=== PATIENT | female | born 1975 | race Caucasian/White ===

== ENCOUNTER → 2016-07-27 | Outpatient (REF) | payer OTHER ==
[~2016-07-27] MED LIST: /CELE20CA PO; /ESCI20TA PO; /ESOM40CA PO; /ZOLP6ER PO; ALBU17IN INH; AMBI10TA PO; AMBIEN PO; ASCO25TA PO; CEPH500C PO; CETI10TA PO; CIPR500T89 PO; CLON-383 PO; CLON0.5T PO; COLA100C2 PO; DOCU10CA PO; FERR325T3 PO; FERROUS SULFATE PO; FLAG500T PO; HYDR-3713 PO; HYDR-733 PO; HYDR200T3 PO; LYRI150C PO; MAXA10TA14 PO; MAXA10TA17 PO; MOTR200T44 PO; MULT1TAB8 PO; NEXI40CA PO; OMEP40CA2 PO; PERC5TAB6 PO; PLAQUINIL; PREG100CA PO; PROP60CA PO; PROP60TA14 PO; RANI15TA PO; SUCR1TA PO; TOPR50TA PO; TRAM50TA2 PO; VARE1TA PO; VENL100T PO; VENL150C43 PO; VITA100072 PO; VITA100L SQ; VITA1DRO SL; VITA500C PO; ZOFR20TA PO; ZYRT10TA6 PO; drisdol PO; hydrocodone PO; hydroxychloroquine PO; savella PO; vit b12 SQ
[2016-07-27 16:07] LABS: BASO % 0.4 % (0.0-1.0); EOS # 0.1 K/mm3 (0.0-0.50); EOS % 0.9 % (0.0-3.0); LARGE UNSTAINED CELL # 0.1 K/mm3 (0.0-0.4); LARGE UNSTAINED CELL % 1.7 % (0.0-4.0); MEAN CORPUSCULAR HEMOGLOBIN 32.1 pg (27.0-33.0); MEAN CORPUSCULAR HGB CONC 32.3 g/dl (32.0-36.5); MEAN CORPUSCULAR VOLUME 99.1 fl (80.0-96.0); MONO # 0.4 K/mm3 (0.0-0.8); MONO % 5.8 % (0.0-5.0); NEUTROPHILS # 4.3 K/mm3 (1.8-7.7); NEUTROPHILS % 63.2 % (36.0-66.0); PLATELET COUNT, AUTOMATED 351 k/mm3 (150-450); RED CELL DISTRIBUTION WIDTH 14.4 % (11.5-14.5); WHITE BLOOD COUNT 6.8 K/mm3 (4.0-10.0)
[2016-07-27 16:36] LABS: ALBUMIN 3.2 GM/DL (3.2-5.2); ALBUMIN/GLOBULIN RATIO 0.94 (1.00-1.93); ALKALINE PHOSPHATASE 69 U/L (45-117); ALT/SGPT 24 U/L (12-78); ANION GAP 6 MEQ/L (8-16); AST/SGOT 15 U/L (15-37); BILIRUBIN,TOTAL 0.2 MG/DL (0.2-1.0); BLOOD UREA NITROGEN 11 MG/DL (7-18); CALCIUM LEVEL 8.4 MG/DL (8.5-10.1); CARBON DIOXIDE LEVEL 25 MEQ/L (21-32); CHLORIDE LEVEL 109 MEQ/L (98-107); GLOMERULAR FILTRATION RATE > 60.0 (>58); GLUCOSE, FASTING 80 MG/DL (70-105); POTASSIUM SERUM 4.5 MEQ/L (3.5-5.1); SODIUM LEVEL 140 MEQ/L (136-145); TOTAL PROTEIN 6.6 GM/DL (6.4-8.2)
[2016-07-27 18:13] LABS: ERYTHROCYTE SEDIMENTATION RATE 23 mm/hr (0-20)
[2016-07-31 00:19] LABS: Lyme Disease IgG/IgM Antibodie <0.91 ISR (0.00-0.90); Lyme Disease IgM Ab Quantitati <0.80 index (0.00-0.79)
== END ==
LOC: M LABDRAW1 15:43
PROVIDERS: ATTEND Internal Medicine Rheumatology
DX: M16.0 Bilateral primary osteoarthritis of hip (principal); M17.0 Bilateral primary osteoarthritis of knee; M05.79 Rheumatoid arthritis with rheumatoid factor of multiple sites without organ or systems involvement; G56.01 Carpal tunnel syndrome, right upper limb; Z79.899 Other long term (current) drug therapy; R53.83 Other fatigue; M70.61 Trochanteric bursitis, right hip

== ENCOUNTER 2017-05-27 12:31 | Emergency (ER) | payer MEDICAID, OTHER ==
[2017-05-27] MEDS: IPRATROPIUM 0.5MG/ALBUTEROL 2.5MG INH SOL UD 3ML (DUONEB)(J7620) NEB (13:25)
[2017-05-27] MEDS: ALBUTEROL SULFATE 2.5 MG/0.5 ML INH NEB SOLN INH (13:25)
[2017-05-27] MEDS: predniSONE 20 MG TAB PO (13:57)
== END 2017-05-27 14:36 | disposition home or self-care (01) ==
LOC: M ED 12:31
DX: J20.9 Acute bronchitis, unspecified (principal); J45.909 Unspecified asthma, uncomplicated; Z79.899 Other long term (current) drug therapy; Z88.0 Allergy status to penicillin; Z88.8 Allergy status to other drugs, medicaments and biological substances; F17.210 Nicotine dependence, cigarettes, uncomplicated
CPT/HCPCS: 71046

== ENCOUNTER → 2017-07-15 | Outpatient (CLI) | payer OTHER | LOC: M WHC 13:51 | DX: Z12.31 Encounter for screening mammogram for malignant neoplasm of breast (principal); Z80.3 Family history of malignant neoplasm of breast; Z80.41 Family history of malignant neoplasm of ovary | CPT/HCPCS: 77067 ==

== ENCOUNTER → 2017-08-04 | Outpatient (CLI) | payer OTHER | LOC: M CARPUL 08:15 | DX: R06.2 Wheezing (principal) | CPT/HCPCS: 94060 ==

== ENCOUNTER → 2017-08-23 | Outpatient (CLI) | payer OTHER ==
[2017-08-23 12:33] LABS: ANION GAP 6 MEQ/L (8-16); BLOOD UREA NITROGEN 8 MG/DL (7-18); CALCIUM LEVEL 8.5 MG/DL (8.5-10.1); CARBON DIOXIDE LEVEL 27 MEQ/L (21-32); CHLORIDE LEVEL 107 MEQ/L (98-107); CREATININE FOR GFR 0.84 MG/DL (0.55-1.30); GLOMERULAR FILTRATION RATE > 60.0 (>58); GLUCOSE, FASTING 91 MG/DL (70-100); POTASSIUM SERUM 4.5 MEQ/L (3.5-5.1); SODIUM LEVEL 140 MEQ/L (136-145)
[2017-08-23 12:34] LABS: BASO # 0.1 10^3/uL (0.0-0.2); BASO % 0.7 % (0.0-1.0); EOS # 0.1 10^3/uL (0.0-0.50); EOS % 1.2 % (0.0-3.0); HEMATOCRIT 41.7 % (36.0-47.0); HEMOGLOBIN 13.9 g/dl (12.0-15.5); IMMATURE GRANULOCYTE % 0.3 % (0-3.0); LYMPH % 29.4 % (24.0-44.0); MEAN CORPUSCULAR HEMOGLOBIN 32.9 pg (27.0-33.0); MEAN CORPUSCULAR HGB CONC 33.3 g/dl (32.0-36.5); MEAN CORPUSCULAR VOLUME 98.6 fl (80.0-96.0); MONO # 0.7 10^3/uL (0.0-0.8); MONO % 9.8 % (0.0-5.0); NEUTROPHILS % 58.6 % (36.0-66.0); PLATELET COUNT, AUTOMATED 358 10^3/uL (150-450); RED BLOOD COUNT 4.23 10^6/uL (4.00-5.40); RED CELL DISTRIBUTION WIDTH 15.5 % (11.5-14.5); WHITE BLOOD COUNT 6.9 10^3/uL (4.0-10.0)
[2017-08-23 12:47] LABS: APPEARANCE, URINE CLEAR (CLEAR); BACTERIA, URINE AUTO NEGATIVE (NEGATIVE); BILIRUBIN, URINE AUTO 1+ (NEGATIVE); BLOOD, URINE BLOOD NEGATIVE (NEGATIVE); COLOR, URINE AMBER (YELLOW); GLUCOSE, URINE (UA) AUTO NEGATIVE (NEGATIVE); KETONE, URINE AUTO TRACE mg/dL (NEGATIVE); LEUKOCYTE ESTERASE, URINE AUTO NEGATIVE (NEGATIVE); MUCUS, URINE SMALL (NEGATIVE); NITRITE, URINE AUTO NEGATIVE (NEGATIVE); PROTEIN, URINE AUTO NEGATIVE (NEGATIVE); RBC, URINE AUTO 0 /HPF (0-3); SPECIFIC GRAVITY URINE AUTO 1.021 (1.002-1.035); SQUAMOUS EPITHELIAL CELL UR AU 1 /HPF (0-6); WBC, URINE AUTO 3 /HPF (0-3)
== END ==
LOC: M WUC 08:22
DX: I10 Essential (primary) hypertension (principal); M05.79 Rheumatoid arthritis with rheumatoid factor of multiple sites without organ or systems involvement
CPT/HCPCS: 80048

== ENCOUNTER → 2017-12-27 | Outpatient (REF) | payer OTHER ==
[2017-12-27 11:44] LABS: APPEARANCE, URINE CLEAR (CLEAR); BACTERIA, URINE AUTO NEGATIVE (NEGATIVE); BILIRUBIN, URINE AUTO NEGATIVE (NEGATIVE); BLOOD, URINE BLOOD NEGATIVE (NEGATIVE); COLOR, URINE YELLOW (YELLOW); GLUCOSE, URINE (UA) AUTO NEGATIVE (NEGATIVE); KETONE, URINE AUTO NEGATIVE (NEGATIVE); LEUKOCYTE ESTERASE, URINE AUTO NEGATIVE (NEGATIVE); MUCUS, URINE SMALL (NEGATIVE); NITRITE, URINE AUTO NEGATIVE (NEGATIVE); PROTEIN, URINE AUTO NEGATIVE (NEGATIVE); RBC, URINE AUTO 0 /HPF (0-3); SPECIFIC GRAVITY URINE AUTO 1.012 (1.002-1.035); SQUAMOUS EPITHELIAL CELL UR AU 1 /HPF (0-6); UROBILINOGEN, URINE AUTO 0.2 mg/dL (0.0-2.0); WBC, URINE AUTO 0 /HPF (0-3)
[2017-12-27 12:05] LABS: ESTIMATED AVERAGE GLUCOSE 100 MG/DL (60-110); HEMOGLOBIN A1c 5.1 %
[2017-12-27 12:28] LABS: ALBUMIN 3.2 GM/DL (3.2-5.2); ALBUMIN/GLOBULIN RATIO 0.97 (1.00-1.93); ALKALINE PHOSPHATASE 126 U/L (45-117); ALT/SGPT 26 U/L (12-78); AST/SGOT 38 U/L (7-37); BILIRUBIN,DIRECT 0.2 MG/DL (0.0-0.2); BILIRUBIN,TOTAL 0.7 MG/DL (0.2-1.0); IRON (FE) 148 UG/DL (50-170); TOTAL 25(OH) VITAMIN D 16.1 NG/ML (30.0-100.0); TOTAL PROTEIN 6.5 GM/DL (6.4-8.2)
== END ==
LOC: M SFHCPLAZ 08:51
DX: M05.79 Rheumatoid arthritis with rheumatoid factor of multiple sites without organ or systems involvement (principal); R82.4 Acetonuria; Z98.84 Bariatric surgery status
CPT/HCPCS: 83540

== ENCOUNTER → 2018-07-10 | Outpatient (CLI) | payer OTHER ==
[~2018-07-10] MED LIST changes: -/CELE20CA PO; -/ESCI20TA PO; -/ESOM40CA PO; -ASCO25TA PO; +BENZ200C70 PO; +CELE1CAP4 PO; +CIPR-249 PO; -CIPR500T89 PO; -CLON0.5T PO; +CLON0.5T8 PO; +IPRA0.00 IN; +LEXA1TAB2 PO; +MUCI600T37 PO; +NEXI1CAP3 PO; +PERC5TAB12 PO; -PERC5TAB6 PO; +PRED20TA PO; +VITA100018 PO; -VITA100072 PO; +VITA1TAB23 PO; -ZOFR20TA PO; +ZOFR4TAB16 PO
--- NOTE | 2018-07-11 02:06 | REP ---
Clinical: Neck pain. Dorsal Technique: AP, lateral, flexion/extension, bilateral oblique, open-mouth and swimmer's views of the cervical spine. Findings: Lateral view demonstrates mild straightening of normal lordosis. Subtle endplate sclerosis and disc space narrowing at C5-6 and C6-7 suggested. Remainder examination is age-appropriate. Impression: Very mild degenerative changes at C5-6 and C6-7 cannot be excluded. Electronically Signed by Francisco Arroyo MD 07/11/2018 01:59 A
--- NOTE | 2018-07-11 02:17 | REP ---
Clinical: thoracic pain. Technique: AP, lateral views of the thoracic spine. Findings: Alignment and kyphosis is maintained. Vertebral bodies intact. No acute fracture / compression injury or subluxation. Very minimal generalized age-related changes noted. No obvious significant disc space narrowing or osteophytosis. Impression: Generalized age-related changes. Electronically Signed by Francisco Arroyo MD 07/11/2018 02:08 A
--- NOTE | 2018-07-11 02:44 | REP ---
Clinical: Dorsalgia. Back pain . Technique: AP, lateral, flexion/extension, bilateral oblique, and coned-down views. Findings: Alignment and lordosis is maintained. The vertebral bodies including transverse process and spinous processes are intact and there is no evidence for acute fracture / compression injury or subluxation. No evidence for spondylolysis or spondylolisthesis. Lateral view best demonstrates moderate degenerative change at L4-5 and L5-S1 including endplate sclerosis, disc space narrowing, and marginal spurring. Impression: Moderate degenerative spondylosis at L4-5 and L5-S1. Electronically Signed by Francisco Arroyo MD 07/11/2018 02:36 A
== END ==
LOC: M LAB 10:41
PROVIDERS: ATTEND Student in an Organized Health Care Education/Training Program
DX: M50.322 Other cervical disc degeneration at C5-C6 level (principal); M50.323 Other cervical disc degeneration at C6-C7 level; M47.816 Spondylosis without myelopathy or radiculopathy, lumbar region; M47.817 Spondylosis without myelopathy or radiculopathy, lumbosacral region; M54.9 Dorsalgia, unspecified; Z80.41 Family history of malignant neoplasm of ovary

== ENCOUNTER → 2018-07-13 | Outpatient (CLI) | payer OTHER ==
--- NOTE | 2018-07-14 13:17 | REP ---
ENDOVAGINAL PROBE PELVIC ULTRASOUND: 07/13/2018. Clinical history: Family history of ovarian cancer. Prior hysterectomy 05/13. Findings: Bladder only partially filled 7.3 x 2.5 x 2.9 cm. Vaginal cuff intact. Uterus absent. No mass at the cuff. No fluid in the cul-de-sac or adnexal region on either side. The right ovary 1.2 x 0.6 x 1.3 cm. Left ovary is 3.2 x 2.9 x 3.6 cm. Both ovaries show normal color flow and Doppler tracing shows resistive index right 0.47, left 0.42. The left ovary has a 2.6 x 2.5 x 2.4 cm cyst. No adjacent fluid or solid mass. Impression: 1. Left adnexal 2.6 x 2.5 cm cyst without adjacent free fluid. No solid mass. Normal Doppler tracing both ovaries. 2. Vaginal cuff intact. Uterus absent.
== END ==
LOC: M WHC 09:52
PROVIDERS: ATTEND Student in an Organized Health Care Education/Training Program
DX: Z80.41 Family history of malignant neoplasm of ovary (principal)

== ENCOUNTER → 2018-09-13 | Outpatient (REF) | payer OTHER, MEDICAID ==
[2018-09-13 14:41] LABS: RHEUMATOID FACTOR QUANT < 10.0 IU/ML (<15.0)
[2018-09-13 14:51] LABS: VITAMIN B12 LEVEL 407 PG/ML
[2018-09-13 14:52] LABS: FOLATE 7.9 NG/ML
[2018-09-13 15:41] LABS: HEMOGLOBIN A1c 5.1 %
[2018-09-18 14:07] LABS: ANTINUCLEAR ANTIBODIES DIRECT Negative (Negative); VITAMIN B1 LEVEL WHOLE BLOOD 120.5 nmol/L (66.5-200.0); VITAMIN E(ALPHA TOCOPHEROL) 9.1 mg/L (7.0-25.1); VITAMIN E(GAMMA TOCOPHEROL) 1.7 mg/L (0.5-5.5)
== END ==
LOC: M LABNEURO 11:07
PROVIDERS: ATTEND Psychiatry & Neurology Neurology
DX: D51.9 Vitamin B12 deficiency anemia, unspecified (principal); E11.9 Type 2 diabetes mellitus without complications

== ENCOUNTER → 2018-09-13 | Outpatient (REF) | payer OTHER, MEDICAID | LOC: M LABNEURO 11:11 | PROVIDERS: ATTEND Student in an Organized Health Care Education/Training Program | DX: E55.9 Vitamin D deficiency, unspecified (principal) ==

== ENCOUNTER → 2020-02-13 | Outpatient (REF) | payer OTHER ==
[~2020-02-13] MED LIST changes: +CLON0.5T2 PO; -CLON0.5T8 PO; -OMEP40CA2 PO; +OMEP40CA97 PO; -VITA1TAB23 PO; +VITA250T20 PO
== END ==
LOC: M SFHCPLAZ 11:59
PROVIDERS: ATTEND Family Medicine
DX: E55.9 Vitamin D deficiency, unspecified (principal); I10 Essential (primary) hypertension

== ENCOUNTER → 2020-03-27 | Outpatient (REF) | payer OTHER ==
[2020-03-27 15:55] LABS: CHLAMYDIA DNA AMPLIFICATION NEGATIVE (NEGATIVE); GC DNA AMPLIFICATION NEGATIVE (NEGATIVE)
== END ==
LOC: M SFHCPLAZ 13:18
PROVIDERS: ATTEND Physician Assistant
DX: N76.4 Abscess of vulva (principal); N76.2 Acute vulvitis; Z20.2 Contact with and (suspected) exposure to infections with a predominantly sexual mode of transmission

== ENCOUNTER 2020-09-09 04:50 | Emergency (ER) | payer MEDICAID, OTHER ==
[~2020-09-09] VITALS: Ht 165.1 cm; Wt 133.0 kg
[~2020-09-09 04:50] MED LIST changes: +OMEP40CA4 PO; -OMEP40CA97 PO
[2020-09-09] MEDS ORDERED: PREG150C PO (05:07)
[2020-09-09] MEDS ORDERED: CETI-24 PO (05:07)
[2020-09-09] MEDS ORDERED: CLON0.5T2 PO (05:07)
[2020-09-09] MEDS ORDERED: LISI30TA4 PO (05:07)
[2020-09-09] MEDS ORDERED: METO1TAB7 PO (05:07)
[2020-09-09] MEDS ORDERED: ZOLP10TA2 PO (05:07)
[2020-09-09] MEDS ORDERED: FAMO20TA5 PO (05:07)
[2020-09-09] MEDS ORDERED: PRAZ1CAP PO (05:07)
[2020-09-09] MEDS ORDERED: BRIN1TAB3 PO (05:07)
[2020-09-09 05:40] LABS: BASO % 0.7 % (0.0-1.0); EOS # 0.1 10^3/uL (0.0-0.5); EOS % 1.7 % (0.0-3.0); HEMATOCRIT 32.1 % (36.0-47.0); HEMOGLOBIN 10.3 g/dl (12.0-15.5); LYMPH % 35.1 % (24.0-44.0); MEAN CORPUSCULAR HEMOGLOBIN 31.8 pg (27.0-33.0); MEAN CORPUSCULAR HGB CONC 32.1 g/dl (32.0-36.5); MEAN CORPUSCULAR VOLUME 99.1 fl (80.0-96.0); MONO # 0.5 10^3/uL (0.0-0.8); NEUTROPHILS # 3.1 10^3/uL (1.5-8.5); NEUTROPHILS % 54.2 % (36.0-66.0); PLATELET COUNT, AUTOMATED 308 10^3/uL (150-450); RED BLOOD COUNT 3.24 10^6/uL (4.00-5.40); WHITE BLOOD COUNT 5.7 10^3/uL (4.0-10.0)
[2020-09-09 05:57] LABS: CK-MB VALUE MASS 1.4 NG/ML (<3.6); CPK CREATINE PHOSPHOKINASE 142 U/L (26-192); MB/CK RELATIVE INDEX 0.99 (< OR =4); TROPONIN I < 0.02 NG/ML (< 0.10)
[2020-09-09] MEDS ORDERED: IPRATROPIUM 0.5MG/ALBUTEROL 2.5MG INH SOL UD 3ML (DUONEB) NEB ONE (06:00)
[2020-09-09 06:08] LABS: ALT/SGPT 34 U/L (12-78); BILIRUBIN,DIRECT < 0.1 MG/DL (0.0-0.2); BILIRUBIN,TOTAL 0.3 MG/DL (0.2-1.0); BLOOD UREA NITROGEN 11 MG/DL (7-18); CALCIUM LEVEL 8.4 MG/DL (8.5-10.1); CARBON DIOXIDE LEVEL 25 MEQ/L (21-32); CHLORIDE LEVEL 110 MEQ/L (98-107); CREATININE FOR GFR 1.27 MG/DL (0.55-1.30); GLUCOSE, FASTING 104 MG/DL (70-100); POTASSIUM SERUM 4.3 MEQ/L (3.5-5.1); SODIUM LEVEL 143 MEQ/L (136-145); TOTAL PROTEIN 6.2 GM/DL (6.4-8.2)
[2020-09-09 08:00] VITALS: O2SAT 96
--- NOTE | 2020-09-09 08:03 | REPVR ---
PROCEDURE INFORMATION: Exam: XR Chest Exam date and time: 09/09/2020 5:15 AM Age: 45 years old Clinical indication: Cough; Additional info: Dyspnea/cough TECHNIQUE: Imaging protocol: XR of the chest. Views: 1 view. COMPARISON: CR Chest, 2 view PA, Lat 05/27/2017 1:41 PM FINDINGS: Lungs: Unremarkable. No consolidation. Pleural spaces: Unremarkable. No pleural effusion. No pneumothorax. Heart/Mediastinum: Unremarkable. No cardiomegaly. Bones/joints: Unremarkable. IMPRESSION: No acute infiltrates. Electronically signed by: Cruz Espinoza On 09/09/2020 08:03:22 AM
[2020-09-09] MEDS ORDERED: IPRA0.00 NEB (08:26)
[2020-09-09] MEDS ORDERED: PRED20TA PO (08:27)
--- NOTE | 2020-09-09 08:31 | ECGEPIP ---
[facility] - ED Test Date: 2020-09-09 Pat Name: EUGENE CONLEY Department: Room: - Gender: Female Chemistry Technician: MELISA : 1975 Requested By: EDWARD Gil Order Number: [id number] Reading MD: Jules Cifuentes Measurements Intervals [place] Rate: 96 P: 55 OR: 128 QRS: 28 QRSD: 74 T: 39 QT: 334 QTc: 421 Interpretive Statements Normal sinus rhythm SIMILAR TO 05/27/17 Electronically Signed on 09-09-2020 8:31:13 EDT by Jules Cifuentes
[2020-09-09 10:26] VITALS: BP 161/88
== END 2020-09-09 10:29 | disposition home or self-care (01) ==
LOC: M ED 04:50
DX: J45.901 Unspecified asthma with (acute) exacerbation (principal); F41.1 Generalized anxiety disorder; M79.7 Fibromyalgia; Z98.84 Bariatric surgery status; Z79.899 Other long term (current) drug therapy; Z88.0 Allergy status to penicillin; F17.210 Nicotine dependence, cigarettes, uncomplicated

== ENCOUNTER → 2021-05-19 | Outpatient (CLI) | payer OTHER ==
[~2021-05-19] MED LIST changes: +BRIN1TAB3 PO; +CETI-24 PO; +FAMO20TA5 PO; +IPRA0.00 NEB; +LISI30TA4 PO; +METO1TAB7 PO; +PRAZ1CAP PO; +PREG150C PO; +ZOLP10TA2 PO
[2021-05-19 13:31] LABS: BASO % 0.6 % (0.0-1.0); EOS # 0.1 10^3/uL (0.0-0.5); EOS % 1.9 % (0.0-3.0); HEMATOCRIT 35.9 % (36.0-47.0); HEMOGLOBIN 11.4 g/dl (12.0-15.5); LYMPH # 2.1 10^3/uL (1.5-5.0); MEAN CORPUSCULAR HEMOGLOBIN 31.2 pg (27.0-33.0); MEAN CORPUSCULAR HGB CONC 31.8 g/dl (32.0-36.5); MEAN CORPUSCULAR VOLUME 98.4 fl (80.0-96.0); MONO # 0.4 10^3/uL (0.0-0.8); MONO % 7.7 % (2.0-8.0); NEUTROPHILS # 2.5 10^3/uL (1.5-8.5); NEUTROPHILS % 48.6 % (36.0-66.0); PLATELET COUNT, AUTOMATED 318 10^3/uL (150-450); RED BLOOD COUNT 3.65 10^6/uL (4.00-5.40); WHITE BLOOD COUNT 5.2 10^3/uL (4.0-10.0)
[2021-05-19 13:52] LABS: MALB URINE SIEMENS 8.1 MG/L
[2021-05-19 14:21] LABS: BLOOD UREA NITROGEN 14 MG/DL (7-18); CALCIUM LEVEL 9.2 MG/DL (8.5-10.1); CARBON DIOXIDE LEVEL 29 MEQ/L (21-32); CHLORIDE LEVEL 109 MEQ/L (98-107); CREATININE FOR GFR 1.58 MG/DL (0.55-1.30); GLOMERULAR FILTRATION RATE 37.2 (>58); GLUCOSE, FASTING 101 MG/DL (70-100); POTASSIUM SERUM 4.9 MEQ/L (3.5-5.1); SODIUM LEVEL 142 MEQ/L (136-145)
[2021-05-19 14:22] LABS: ALBUMIN 3.4 GM/DL (3.2-5.2); ALT/SGPT 30 U/L (12-78); BILIRUBIN,TOTAL 0.3 MG/DL (0.2-1.0); C REACTIVE PROTEIN QUANTITATIV 0.54 MG/DL (0.00-0.30); CHOLESTEROL LEVEL 217 MG/DL (<200); CHOLESTEROL RISK RATIO 4.617 (<5); FERRITIN 20 NG/ML (8-252); FOLATE > 24.0 NG/ML; FREE T4 0.91 NG/DL (0.76-1.46); HDL CHOLESTEROL 47 MG/DL (>40); LDL CHOLESTEROL 124 MG/DL (<100); MAGNESIUM LEVEL 2.1 MG/DL (1.8-2.4); NON-HDL-C 170 MG/DL; TOTAL 25(OH) VITAMIN D 42.6 NG/ML (30.0-100.0); TOTAL PROTEIN 6.6 GM/DL (6.4-8.2); TRIGLYCERIDES LEVEL 231 MG/DL (<150); VITAMIN B12 LEVEL 206 PG/ML
[2021-05-19 14:27] LABS: HEMOGLOBIN A1c 5.6 %
[2021-05-19 14:47] LABS: ERYTHROCYTE SEDIMENTATION RATE 35 mm/hr (0-20)
== END ==
LOC: M PLALAB 09:01
PROVIDERS: ATTEND Physician Assistant
DX: M05.79 Rheumatoid arthritis with rheumatoid factor of multiple sites without organ or systems involvement (principal); Z68.41 Body mass index [BMI] 40.0-44.9, adult; Z98.84 Bariatric surgery status; I10 Essential (primary) hypertension

== ENCOUNTER → 2021-06-05 | Outpatient (REF) | payer OTHER, MEDICAID | LOC: M SFHCDERM 14:01 | PROVIDERS: ATTEND Nurse Practitioner Family | DX: L82.1 Other seborrheic keratosis (principal) ==

== ENCOUNTER → 2021-08-19 | Outpatient (CLI) | payer OTHER, MEDICAID ==
[2021-08-19 13:17] LABS: BASO % 0.7 % (0.0-1.0); EOS # 0.1 10^3/uL (0.0-0.5); EOS % 1.8 % (0.0-3.0); HEMATOCRIT 37.7 % (36.0-47.0); LYMPH # 2.1 10^3/uL (1.5-5.0); MEAN CORPUSCULAR HEMOGLOBIN 30.8 pg (27.0-33.0); MEAN CORPUSCULAR HGB CONC 31.8 g/dl (32.0-36.5); MEAN CORPUSCULAR VOLUME 96.7 fl (80.0-96.0); MONO # 0.6 10^3/uL (0.0-0.8); MONO % 11.7 % (2.0-8.0); NEUTROPHILS # 2.6 10^3/uL (1.5-8.5); NEUTROPHILS % 47.6 % (36.0-66.0); PLATELET COUNT, AUTOMATED 316 10^3/uL (150-450); WHITE BLOOD COUNT 5.5 10^3/uL (4.0-10.0)
[2021-08-19 13:18] LABS: APPEARANCE, URINE CLEAR (CLEAR); BACTERIA, URINE AUTO NEGATIVE (NEGATIVE); BILIRUBIN, URINE AUTO NEGATIVE (NEGATIVE); BLOOD, URINE BLOOD NEGATIVE (NEGATIVE); COLOR, URINE YELLOW (YELLOW); GLUCOSE, URINE (UA) AUTO NEGATIVE (NEGATIVE); KETONE, URINE AUTO NEGATIVE (NEGATIVE); LEUKOCYTE ESTERASE, URINE AUTO NEGATIVE (NEGATIVE); NITRITE, URINE AUTO NEGATIVE (NEGATIVE); PROTEIN, URINE AUTO NEGATIVE (NEGATIVE); RBC, URINE AUTO 0 /HPF (0-3); SPECIFIC GRAVITY URINE AUTO 1.009 (1.002-1.035); SQUAMOUS EPITHELIAL CELL UR AU 1 /HPF (0-6); UROBILINOGEN, URINE AUTO 0.2 mg/dL (0.0-2.0); WBC, URINE AUTO 1 /HPF (0-3)
[2021-08-19 13:46] LABS: ALBUMIN 3.6 GM/DL (3.2-5.2); BLOOD UREA NITROGEN 12 MG/DL (7-18); C REACTIVE PROTEIN QUANTITATIV 0.58 MG/DL (0.00-0.30); CALCIUM LEVEL 9.1 MG/DL (8.5-10.1); CARBON DIOXIDE LEVEL 27 MEQ/L (21-32); CHLORIDE LEVEL 108 MEQ/L (98-107); CREATININE FOR GFR 1.61 MG/DL (0.55-1.30); GLOMERULAR FILTRATION RATE 36.4 (>58); GLUCOSE, FASTING 102 MG/DL (70-100); PHOSPHORUS LEVEL 4.2 MG/DL (2.5-4.9); POTASSIUM SERUM 4.9 MEQ/L (3.5-5.1); RHEUMATOID FACTOR QUANT < 10.0 IU/ML (<15.0); SODIUM LEVEL 140 MEQ/L (136-145); URIC ACID 4.9 MG/DL (2.6-6.0)
[2021-08-19 13:52] LABS: ERYTHROCYTE SEDIMENTATION RATE 47 mm/hr (0-20)
[2021-08-20 23:07] LABS: ANA (HEP2) Negative (.); CYCLIC CITRULLINATED PEPTIDE 2 units (0-19)
== END ==
LOC: M PLALAB 10:26
PROVIDERS: ATTEND Physician Assistant
DX: M51.36 Other intervertebral disc degeneration, lumbar region (principal); N18.32 Chronic kidney disease, stage 3b; M05.79 Rheumatoid arthritis with rheumatoid factor of multiple sites without organ or systems involvement

== ENCOUNTER → 2021-09-14 | Outpatient (CLI) | payer OTHER | LOC: M RAD 07:47 | PROVIDERS: ATTEND Physician Assistant | DX: N18.32 Chronic kidney disease, stage 3b (principal) ==

== ENCOUNTER 2021-09-17 16:00 | Outpatient (RCR) | payer OTHER | END 2021-09-27 | LOC: M PT 16:00 | PROVIDERS: ATTEND Physician Assistant | DX: Z74.09 Other reduced mobility (principal) ==

== ENCOUNTER → 2021-12-14 | Outpatient (CLI) | payer OTHER ==
[~2021-12-14] MED LIST changes: -MAXA10TA14 PO; +RIZA10TA64 PO
== END ==
LOC: M WHC 14:39
PROVIDERS: ATTEND Physician Assistant
DX: Z90.711 Acquired absence of uterus with remaining cervical stump (principal); Z90.722 Acquired absence of ovaries, bilateral; Z80.41 Family history of malignant neoplasm of ovary

== ENCOUNTER → 2021-12-23 | Outpatient (CLI) | payer OTHER | LOC: M RAD 07:26 | PROVIDERS: ATTEND Physician Assistant | DX: N18.32 Chronic kidney disease, stage 3b (principal) ==

== ENCOUNTER → 2022-05-05 | Outpatient (REF) | payer OTHER, MEDICAID ==
[2022-05-05 13:27] LABS: APPEARANCE, URINE CLEAR (CLEAR); BACTERIA, URINE AUTO 1+ (NEGATIVE); BILIRUBIN, URINE AUTO NEGATIVE (NEGATIVE); BLOOD, URINE BLOOD NEGATIVE (NEGATIVE); COLOR, URINE AMBER (YELLOW); GLUCOSE, URINE (UA) AUTO NEGATIVE (NEGATIVE); KETONE, URINE AUTO NEGATIVE (NEGATIVE); LEUKOCYTE ESTERASE, URINE AUTO NEGATIVE (NEGATIVE); NITRITE, URINE AUTO NEGATIVE (NEGATIVE); PROTEIN, URINE AUTO NEGATIVE (NEGATIVE); RBC, URINE AUTO 1 /HPF (0-3); SPECIFIC GRAVITY URINE AUTO 1.009 (1.002-1.035); SQUAMOUS EPITHELIAL CELL UR AU 0 /HPF (0-6); WBC, URINE AUTO 0 /HPF (0-3)
== END ==
LOC: M LAB REF 12:28
PROVIDERS: ATTEND Physician Assistant
DX: N39.0 Urinary tract infection, site not specified (principal)

== ENCOUNTER → 2022-06-04 | Outpatient (CLI) | payer OTHER, MEDICAID ==
[2022-06-04 14:47] LABS: BASO % 0.6 % (0.0-1.0); EOS # 0.1 10^3/uL (0.0-0.5); EOS % 1.7 % (0.0-3.0); HEMATOCRIT 41.6 % (36.0-47.0); HEMOGLOBIN 13.1 g/dl (12.0-15.5); LYMPH # 1.8 10^3/uL (1.5-5.0); LYMPH % 26.3 % (24.0-44.0); MEAN CORPUSCULAR HGB CONC 31.5 g/dl (32.0-36.5); MEAN CORPUSCULAR VOLUME 95.2 fl (80.0-96.0); MONO # 0.6 10^3/uL (0.0-0.8); MONO % 8.8 % (2.0-8.0); NEUTROPHILS # 4.3 10^3/uL (1.5-8.5); NEUTROPHILS % 62.2 % (36.0-66.0); PLATELET COUNT, AUTOMATED 329 10^3/uL (150-450); RED BLOOD COUNT 4.37 10^6/uL (4.00-5.40); WHITE BLOOD COUNT 6.9 10^3/uL (4.0-10.0)
[2022-06-04 14:52] LABS: IRON (FE) 56 UG/DL (50-170); PERCENT SATURATION 14.7 % (13.2-45.0); TOTAL IRON BINDING CAPACITY 380 UG/DL (250-425)
[2022-06-04 14:53] LABS: ALBUMIN 3.7 G/DL (3.2-5.2); ALKALINE PHOSPHATASE 117 U/L (46-116); ALT/SGPT 29 U/L (7.0-40); AST/SGOT 31 U/L (<34); BILIRUBIN,TOTAL 0.3 MG/DL (0.3-1.2); BLOOD UREA NITROGEN 10 MG/DL (9-23); CARBON DIOXIDE LEVEL 28 MMOL/L (20-31); CHLORIDE LEVEL 104 MMOL/L (98-107); CREATININE FOR GFR 1.03 MG/DL (0.55-1.30); GLOMERULAR FILTRATION RATE > 60.0 (>58); GLUCOSE, FASTING 103 MG/DL (60-100); POTASSIUM SERUM 4.8 MMOL/L (3.5-5.1); SODIUM LEVEL 138 MMOL/L (136-145); TOTAL PROTEIN 6.8 G/DL (5.7-8.2)
[2022-06-04 14:54] LABS: FREE T4 0.91 NG/DL (0.89-1.76)
[2022-06-04 14:55] LABS: THYROID STIMULATING HORMONE 1.205 uIU/ML (0.55-4.78); TOTAL 25(OH) VITAMIN D 29.1 NG/ML (20.0-100.0); VITAMIN B12 LEVEL 273 PG/ML (211-911)
== END ==
LOC: M PLALAB 10:06
PROVIDERS: ATTEND Physician Assistant
DX: Z80.41 Family history of malignant neoplasm of ovary (principal); R30.0 Dysuria; I10 Essential (primary) hypertension; N18.32 Chronic kidney disease, stage 3b; Z98.84 Bariatric surgery status

== ENCOUNTER → 2022-06-04 | Outpatient (REF) | payer MEDICAID, OTHER | LOC: M SFHCPLAZ 09:55 | PROVIDERS: ATTEND Physician Assistant | DX: R30.0 Dysuria (principal) ==

== ENCOUNTER → 2022-07-16 | Outpatient (CLI) | payer OTHER | LOC: M WHC 10:46 | PROVIDERS: ATTEND Physician Assistant | DX: Z12.31 Encounter for screening mammogram for malignant neoplasm of breast (principal) ==

== ENCOUNTER 2022-08-20 11:30 | Emergency (ER) | payer MEDICAID, OTHER ==
[~2022-08-20] VITALS: Ht 165.1 cm; Wt 118.2 kg
[~2022-08-20 11:30] MED LIST changes: -CLON-383 PO; +CLON-442 PO; -HYDR200T3 PO; +HYDR200T46 PO
[2022-08-20 12:17] LABS: BASO % 0.3 % (0.0-1.0); EOS # 0.1 10^3/uL (0.0-0.5); EOS % 0.9 % (0.0-3.0); HEMATOCRIT 39.8 % (36.0-47.0); HEMOGLOBIN 12.7 g/dl (12.0-15.5); LYMPH # 1.8 10^3/uL (1.5-5.0); LYMPH % 18.1 % (24.0-44.0); MEAN CORPUSCULAR HEMOGLOBIN 29.7 pg (27.0-33.0); MEAN CORPUSCULAR HGB CONC 31.9 g/dl (32.0-36.5); MEAN CORPUSCULAR VOLUME 93.2 fl (80.0-96.0); MONO # 0.8 10^3/uL (0.0-0.8); MONO % 8.5 % (2.0-8.0); NEUTROPHILS % 71.8 % (36.0-66.0); PLATELET COUNT, AUTOMATED 379 10^3/uL (150-450); RED BLOOD COUNT 4.27 10^6/uL (4.00-5.40); WHITE BLOOD COUNT 9.7 10^3/uL (4.0-10.0)
[2022-08-20 12:30] LABS: INR 0.88; PARTIAL THROMBOPLASTIN TIME 24.2 SECONDS (24.8-34.2); PROTHROMBIN TIME 12.1 SECONDS (12.5-14.5)
[2022-08-20 12:50] LABS: LIPASE 37 U/L (12-53)
[2022-08-20 12:52] LABS: ALBUMIN 3.8 G/DL (3.2-5.2); ALKALINE PHOSPHATASE 113 U/L (46-116); ALT/SGPT 38 U/L (7.0-40); AST/SGOT 26 U/L (<34); BILIRUBIN,DIRECT < 0.1 MG/DL (<0.4); BILIRUBIN,TOTAL 0.3 MG/DL (0.3-1.2); BLOOD UREA NITROGEN 17 MG/DL (9-23); CALCIUM LEVEL 8.7 MG/DL (8.5-10.1); CARBON DIOXIDE LEVEL 24 MMOL/L (20-31); CHLORIDE LEVEL 108 MMOL/L (98-107); CK-MB VALUE MASS 1.3 NG/ML (<3.6); CREATININE FOR GFR 1.42 MG/DL (0.55-1.30); GLOMERULAR FILTRATION RATE 41.9 (>58); GLUCOSE, FASTING 85 MG/DL (60-100); SODIUM LEVEL 139 MMOL/L (136-145); TOTAL PROTEIN 6.8 G/DL (5.7-8.2)
[2022-08-20 13:06] LABS: RSV AMPLIFICATION NEGATIVE (NEGATIVE)
[2022-08-20 13:07] LABS: CPK CREATINE PHOSPHOKINASE 195 U/L (34-145); MB/CK RELATIVE INDEX 0.66 (< OR =4)
[2022-08-20] MEDS ORDERED: ISOVUE-370 76% 100ML VIAL As Ordered ONE (13:12)
[2022-08-20 14:21] LABS: CK-MB VALUE MASS 2.6 NG/ML (<3.6)
[2022-08-20 14:22] LABS: MB/CK RELATIVE INDEX 1.48 (< OR =4)
[2022-08-20] MEDS ORDERED: NS 1,000 ML IV ONE (14:50)
[2022-08-20] MEDS ORDERED: METR-265 PO (16:26)
[2022-08-20] MEDS ORDERED: CIPR-249 PO (16:26)
[2022-08-20 17:19] VITALS: BP 101/55; TEMP 96.8; O2SAT 96
== END 2022-08-20 17:28 | disposition home or self-care (01) ==
LOC: M ED 11:30 → EDBD 11:30 → M ED 17:28
DX: K52.9 Noninfective gastroenteritis and colitis, unspecified (principal); K21.9 Gastro-esophageal reflux disease without esophagitis; M06.9 Rheumatoid arthritis, unspecified; F43.10 Post-traumatic stress disorder, unspecified; M79.7 Fibromyalgia; F41.1 Generalized anxiety disorder; Z98.84 Bariatric surgery status; Z79.52 Long term (current) use of systemic steroids; Z79.899 Other long term (current) drug therapy
CPT/HCPCS: 36415; 74177; 80048; 80076; 82270; 82550; 82553; 83605; 83690; 85025; 85610; 85730; 87507; 87631; 93005; 93041; 99285; Q9967

== ENCOUNTER → 2023-04-27 | Outpatient (REF) ==
[~2023-04-27] MED LIST changes: +METR-265 PO; -PREG150C PO; +PREG150C2 PO
== END ==
LOC: M PLAIMG 14:55
PROVIDERS: ATTEND Internal Medicine
DX: R52 Pain, unspecified (principal); M50.33 Other cervical disc degeneration, cervicothoracic region

== ENCOUNTER → 2023-04-27 | Outpatient (CLI) | payer MEDICAID, OTHER ==
[2023-04-27 17:46] LABS: BASO # 0.1 10^3/uL (0.0-0.2); BASO % 0.6 % (0.0-1.0); EOS # 0.1 10^3/uL (0.0-0.5); EOS % 1.5 % (0.0-3.0); HEMATOCRIT 39.7 % (36.0-47.0); HEMOGLOBIN 12.4 g/dl (12.0-15.5); LYMPH % 36.9 % (24.0-44.0); MEAN CORPUSCULAR HEMOGLOBIN 28.4 pg (27.0-33.0); MEAN CORPUSCULAR HGB CONC 31.2 g/dl (32.0-36.5); MEAN CORPUSCULAR VOLUME 90.8 fl (80.0-96.0); MONO # 0.6 10^3/uL (0.0-0.8); MONO % 7.8 % (2.0-8.0); NEUTROPHILS # 4.3 10^3/uL (1.5-8.5); PLATELET COUNT, AUTOMATED 369 10^3/uL (150-450); RED BLOOD COUNT 4.37 10^6/uL (4.00-5.40); WHITE BLOOD COUNT 8.1 10^3/uL (4.0-10.0)
[2023-04-27 17:56] LABS: ALBUMIN 3.7 G/DL (3.2-5.2); BILIRUBIN,TOTAL 0.3 MG/DL (0.3-1.2); CALCIUM LEVEL 9.2 MG/DL (8.5-10.1); CREATININE FOR GFR 1.12 MG/DL (0.55-1.30); GLOMERULAR FILTRATION RATE 54.8 (>51); POTASSIUM SERUM 5.3 MMOL/L (3.5-5.1); TOTAL PROTEIN 6.9 G/DL (5.7-8.2)
[2023-04-27 18:01] LABS: TOTAL 25(OH) VITAMIN D 40.6 NG/ML (20.0-100.0)
[2023-04-27 18:42] LABS: HEMOGLOBIN A1c 5.7 % (4.0-6.0)
[2023-04-27 19:06] LABS: PTH INTACT 104.3 PG/ML (18.5-88.0)
== END ==
LOC: M PLALAB 14:51
PROVIDERS: ATTEND Physician Assistant
DX: Z13.1 Encounter for screening for diabetes mellitus (principal)

== ENCOUNTER → 2024-03-12 | Outpatient (REF) | payer MEDICAID, OTHER | LOC: M SFHCPLAZ 12:53 | DX: R50.9 Fever, unspecified (principal) ==

== ENCOUNTER → 2024-07-18 | Outpatient (CLI) | payer OTHER ==
[~2024-07-18] MED LIST changes: -AMBI10TA PO; +ZOLP-533 PO
== END ==
LOC: M RAD 12:11
PROVIDERS: ATTEND Nurse Practitioner Family
DX: Z80.41 Family history of malignant neoplasm of ovary (principal)

== ENCOUNTER → 2024-12-20 | Outpatient (CLI) | payer OTHER ==
[~2024-12-20] MED LIST changes: +ZOLP10TA11 PO; -ZOLP10TA2 PO
[2024-12-20 14:39] LABS: PLATELET COUNT, AUTOMATED 342 10^3/uL (150-450)
[2024-12-20 15:22] LABS: ESTIMATED AVERAGE GLUCOSE 117.0 MG/DL (60-110)
== END ==
LOC: M PLALAB 10:18
PROVIDERS: ATTEND Family Medicine
DX: M05.79 Rheumatoid arthritis with rheumatoid factor of multiple sites without organ or systems involvement (principal); I10 Essential (primary) hypertension; R73.03 Prediabetes

== ENCOUNTER → 2024-12-20 | Outpatient (REF) | payer OTHER | LOC: M SFHCPLAZ 10:18 | PROVIDERS: ATTEND Family Medicine | DX: Z53.9 Procedure and treatment not carried out, unspecified reason (principal) ==